=== PATIENT | female | born 1970 | race Caucasian/White ===

== ENCOUNTER 2021-05-04 09:39 | Emergency (ER) | payer BC, MEDICARE ==
[~2021-05-04] VITALS: Ht 172.7 cm; Wt 108.0 kg
--- NOTE | 2021-05-04 10:28 | NUR ---
PT AMBULATORY TO ROOM 31 W/ C/O LUQ AND L FLANK ABD PAIN STARTED YESTERDAY AND STATES INCREASED STRENGTH IN URINE. PT STATES MULTIPLE HX LUPUS AND KIDNEY ISSUES. PT HAS PAIN ON PALPATION TO LUQ PT HAD PANCREATIC STENT IN 09/16. PT RESTING ON GURNEY. NADN. MONITORS APPLIED. VSS. WARM BLANKET PROVIDED. CALL LIGHT IN REACH. ERP DR. EVANS AT BEDSIDE FOR EVAL.
[2021-05-04] MEDS ORDERED: ONDANSETRON 2MG/ML, 2ML IVPush ONE (11:00)
[2021-05-04] MEDS ORDERED: MORPHINE SULFATE 4 MG/ML, 1ML IVPush PRN (11:00)
[2021-05-04] MEDS ORDERED: SODIUM CHLORIDE FLUSH 10ML SYR IVF ONE (11:00)
[2021-05-04] MEDS ORDERED: SODIUM CHLORIDE 0.9% 1,000ML IVBOLUS ONE (11:00)
[2021-05-04] MEDS ORDERED: MORPHINE SULFATE 4 MG/ML, 1ML ONE (11:10)
[2021-05-04] MEDS ORDERED: ONDANSETRON 2MG/ML, 2ML ONE (11:10)
[2021-05-04] MEDS ORDERED: DIPHENHYDRAMINE 50 MG/ML, 1ML ONE (11:10)
[2021-05-04 11:23] LABS: BASOPHILS % (AUTO) 0 % (0-1); EOSINOPHILS % (AUTO) 0 % (1-7); LYMPHOCYTES % (AUTO) 8 % (22-44); MEAN CORPUSCULAR HGB CONC 32.1 g/dL (32.4-35.8); MEAN PLATELET VOLUME 8.4 fL (7.4-10.4); MONOCYTES % (AUTO) 7 % (2-9); NEUTROPHILS % (AUTO) 85 % (42-75); PLATELET COUNT 198 x10^3/uL (130-400); RED BLOOD COUNT 4.43 x10^6/uL (3.82-5.3); RED CELL DISTRIBUTION WIDTH 16.1 % (9.6-15.2)
[2021-05-04 11:29] LABS: MICROSCOPIC INDICATED
[2021-05-04] MEDS ORDERED: DIPHENHYDRAMINE 50 MG/ML, 1ML IV ONE (11:30)
[2021-05-04 11:35] LABS: ALANINE AMINOTRANSFERASE 24 U/L (12-78); ALBUMIN 3.5 g/dL (3.4-5.0); ANION GAP 5 mmol/L (5-15); CALCIUM 8.8 mg/dL (8.5-10.1); CHLORIDE 115 mmol/L (98-107); CREATININE 0.73 mg/dL (0.55-1.02)
[2021-05-04 11:37] LABS: ALKALINE PHOSPHATASE 86 U/L (45-117); BILIRUBIN,TOTAL 0.3 mg/dL (0.2-1.0)
--- NOTE | 2021-05-04 12:08 | NUR ---
PT TAKEN TO CT IN STABLE CONDITION.
[2021-05-04] MEDS ORDERED: OMNIPAQUE 350 MG/ML, 100ML BOTTLE ONE (12:26)
--- NOTE | 2021-05-04 12:49 | NUR ---
ERP DR. EVANS AT BEDSIDE FOR RE-EVAL.
[2021-05-04 12:54] VITALS: BP 152/84
--- NOTE | 2021-05-04 12:55 | NUR ---
PT RESTING ON GURNEY. NADN. DIALLO.
[2021-05-04] MEDS ORDERED: OXYcodone/APAP 5/325MG TABLET ONE (13:05)
[2021-05-04] MEDS ORDERED: ONDANSETRON ODT 8 MG ONE (13:05)
[2021-05-04] MEDS ORDERED: OXYcodone/APAP 5/325MG TABLET PO ONE (13:30)
[2021-05-04] MEDS ORDERED: ONDANSETRON ODT 8 MG PO ONE (14:00)
== END 2021-05-04 13:46 | disposition home or self-care (01) ==
LOC: ED 12:30
DX: R10.12 Left upper quadrant pain (principal); E86.0 Dehydration; R10.13 Epigastric pain; R11.0 Nausea; R94.31 Abnormal electrocardiogram [ECG] [EKG]; Z86.718 Personal history of other venous thrombosis and embolism; Z90.49 Acquired absence of other specified parts of digestive tract
CPT/HCPCS: 36415; 74174; 80053; 81001; 83605; 83690; 85025; 93005; 96361; 96374; 96375; 99285; J1200; J2270; J2405; J7030; Q0162; Q9967